=== PATIENT | female | born 1975 | race African-American/Black ===

== ENCOUNTER → 2018-08-01 | Outpatient (CLI) | payer OTHER | END | disposition home or self-care (01) | LOC: RADMN 13:10 | PROVIDERS: ATTEND Internal Medicine Cardiovascular Disease | DX: I20.8 Other forms of angina pectoris (principal); I49.8 Other specified cardiac arrhythmias; R22.2 Localized swelling, mass and lump, trunk; R07.9 Chest pain, unspecified; M79.89 Other specified soft tissue disorders | CPT/HCPCS: 71250 ==

== ENCOUNTER → 2019-08-17 | Outpatient (CLI) | payer OTHER ==
[~2019-08-17] MED LIST: IOVERSOL 350 MG/ML 100 ML VIAL ONE; SODIUM CHLORIDE 0.9% 100 ML ONE
== END | disposition home or self-care (01) ==
LOC: RADMN 08:30
PROVIDERS: ATTEND Internal Medicine Cardiovascular Disease
DX: J43.9 Emphysema, unspecified (principal); J40 Bronchitis, not specified as acute or chronic
CPT/HCPCS: 71260; J7050; Q9967

== ENCOUNTER 2021-11-03 20:18 | Emergency (ER) | payer OTHER ==
[~2021-11-03] VITALS: Ht 165.1 cm; Wt 52.3 kg
[2021-11-03 22:58] VITALS: BP 145/82
[2021-11-03 23:46] LABS: COVID AG,FIA SOURCE NASAL SWAB
== END 2021-11-03 22:59 | disposition home or self-care (01) ==
LOC: EMS 20:20
DX: U07.1 COVID-19 (principal); J40 Bronchitis, not specified as acute or chronic; F12.90 Cannabis use, unspecified, uncomplicated; J44.9 Chronic obstructive pulmonary disease, unspecified; I50.9 Heart failure, unspecified
CPT/HCPCS: 71045; 87426; 99284; C9803

== ENCOUNTER 2023-02-19 14:20 | Emergency (ER) | payer OTHER ==
[~2023-02-19] VITALS: Ht 165.1 cm; Wt 50.0 kg
[2023-02-19] MEDS ORDERED: METO50 PO (14:42)
[2023-02-19] MEDS ORDERED: ATOR10TA PO (14:42)
[2023-02-19] MEDS ORDERED: ALBU18HF12 IH (14:42)
[2023-02-19] MEDS ORDERED: BECL10.6 IH (14:42)
[2023-02-19 16:29] LABS: BASOPHILS % (AUTO) 0.8 % (0.0-2.0); EOSINOPHILS % (AUTO) 0.7 % (1.0-6.0); HEMATOCRIT 41.2 % (36-46); HEMOGLOBIN 13.5 g/dL (12.0-16.0); LYMPHOCYTES # (AUTO) 2.5 K/uL (1.0-4.8); MEAN CORPUSCULAR HEMOGLOBIN 30.4 pg (26.0-34.0); MEAN CORPUSCULAR HGB CONC 32.8 G/dL (31.0-37.0); MEAN CORPUSCULAR VOLUME 93 fL (80-100); MONOCYTES # (AUTO) 0.4 K/uL (0.1-1.0); MONOCYTES % (AUTO) 6.5 % (2.0-9.0); NEUTROPHILS # (AUTO) 3.5 K/uL (1.8-7.7); PLATELET COUNT (AUTO) 251 K/uL (150-450); RED BLOOD CELL COUNT(AUTO) 4.46 MIL/uL (4.00-5.20); RED CELL DISTRIBUTION WIDTH 13.5 % (11.5-14.5)
[2023-02-19 16:56] LABS: PROTHROMBIN TIME 10.3 SEC (9.4-11.6)
[2023-02-19 17:03] LABS: B-TYPE NATRIURETIC PEPTIDE 24 pg/mL (0-100)
[2023-02-19 17:09] LABS: ANION GAP 9 mmol/L (8-16); CALCIUM, TOTAL 9.2 mg/dL (8.8-10.5); CARBON DIOXIDE 26 mmol/L (22-29); CHLORIDE 107 mmol/L (98-107); GLOMERULAR FILTR. RATE CALC > 60 mL/min (>60); GLUCOSE,RANDOM 81 mg/dL (70-110); POTASSIUM 4.4 mmol/L (3.5-5.1); SODIUM SERUM 142 mmol/L (136-145); UREA NITROGEN, BLOOD 12 mg/dL (7-18)
[2023-02-19 17:26] LABS: ALANINE AMINOTRANSFERASE 24 U/L (12-78); ALBUMIN 3.8 g/dL (3.4-5.0); ALKALINE PHOSPHATASE 67 U/L (46-116); ASPARTATE AMINOTRANSFERASE 20 U/L (15-37); BILIRUBIN,TOTAL 0.6 mg/dL (0.1-1.0); TOTAL PROTEIN, SERUM 7.5 g/dL (6.4-8.2)
[2023-02-19 17:44] LABS: HCG,QUANTITATIVE < 1 mIU/mL (0-6)
[2023-02-19 18:20] LABS: APPEARANCE,URINE CLEAR (CLEAR); BILIRUBIN,URINE NEGATIVE (NEGATIVE); GLUCOSE, URINE (UA) NEGATIVE (NEGATIVE); KETONES,URINE NEGATIVE (NEGATIVE); LEUKOCYTE ESTERASE ,URINE NEGATIVE (NEGATIVE); NITRATE,URINE NEGATIVE (NEGATIVE); OCCULT BLOOD,URINE MODERATE (NEGATIVE); PROTEIN,URINE TRACE mg/dL (NEGATIVE); SPECIFIC GRAVITIY, URINE 1.026 (1.003-1.030); UROBILINOGEN,URINE <=1.0 mg/dL (<=1.0)
[2023-02-19 18:25] LABS: BACTERIA,URINE None Seen /HPF (None Seen); SQUAMOUS EPITHELIAL CELL,UR Few /LPF (None Seen); WBC,URINE None Seen /HPF (0-5)
[2023-02-19 19:47] VITALS: BP 102/62
== END 2023-02-19 20:23 | disposition home or self-care (01) ==
LOC: EMS 14:22
DX: N93.9 Abnormal uterine and vaginal bleeding, unspecified (principal); F41.9 Anxiety disorder, unspecified; I50.9 Heart failure, unspecified; J44.9 Chronic obstructive pulmonary disease, unspecified; F12.90 Cannabis use, unspecified, uncomplicated; Z98.890 Other specified postprocedural states
CPT/HCPCS: 80053; 81001; 83880; 84484; 84702; 85025; 85610; 85730; 93005; 99284

== ENCOUNTER 2024-05-23 13:18 | Emergency (ER) | payer OTHER ==
[~2024-05-23] VITALS: Ht 165.1 cm; Wt 50.9 kg
[~2024-05-23 13:18] MED LIST changes: +ALBU18HF12 IH; +ATOR10TA PO; +BECL10.6 IH; -IOVERSOL 350 MG/ML 100 ML VIAL ONE; +METO50 PO; -SODIUM CHLORIDE 0.9% 100 ML ONE
[2024-05-23 13:41] VITALS: TEMP 98.4
[2024-05-23] MEDS ORDERED: OMEP20TA20 PO (13:47)
[2024-05-23] MEDS ORDERED: GABA600T10 PO (13:47)
[2024-05-23] MEDS ORDERED: TRAZ-252 PO (13:47)
[2024-05-23] MEDS ORDERED: EZET10TA57 PO (13:47)
[2024-05-23] MEDS ORDERED: ATOR20TA65 PO (13:47)
[2024-05-23] MEDS ORDERED: ASPI-1444 PO (13:47)
[2024-05-23] MEDS ORDERED: LATA2.5D14 OU (13:47)
[2024-05-23] MEDS ORDERED: DEXA4 PO (14:03)
[2024-05-23] MEDS ORDERED: CELE200 PO (14:03)
[2024-05-23 14:04] VITALS: BP 125/74; PULSE 64; RESP 14
[2024-05-23] MEDS ORDERED: NALO25TA4 PO (14:07)
[2024-05-23] MEDS ORDERED: UMEC1DIS IH (14:07)
[2024-05-23] MEDS ORDERED: MIRT-93 PO (14:07)
[2024-05-23] MEDS ORDERED: CHOL200059 PO (14:07)
[2024-05-23] MEDS ORDERED: LIDO1ADH63 TD (14:07)
[2024-05-23] MEDS ORDERED: TRET20CR33 TP (14:07)
[2024-05-23] MEDS ORDERED: METO-408 PO (14:07)
[2024-05-23] MEDS: KETOROLAC TROMETHAMINE 60 MG/2 ML VIAL IM ONE (14:08)
[2024-05-23] MEDS: DEXAMETHASONE SOD PHOS 4 MG/ML 5 ML VIAL IM ONE (14:08)
[2024-05-24] MEDS ORDERED: ONDA-104 PO (07:08)
== END 2024-05-23 14:30 | disposition home or self-care (01) ==
LOC: EMS 13:42
DX: G56.01 Carpal tunnel syndrome, right upper limb (principal); E78.00 Pure hypercholesterolemia, unspecified; I50.9 Heart failure, unspecified; J44.9 Chronic obstructive pulmonary disease, unspecified; F12.90 Cannabis use, unspecified, uncomplicated
CPT/HCPCS: 99284; 96372; J1100; J1885

== ENCOUNTER 2024-05-24 01:32 | Emergency (ER) | payer OTHER ==
[~2024-05-24] VITALS: Ht 165.1 cm; Wt 50.9 kg
[~2024-05-24 01:32] MED LIST changes: +ASPI-1444 PO; -ATOR10TA PO; +ATOR20TA65 PO; -BECL10.6 IH; +CELE200 PO; +CHOL200059 PO; +DEXA4 PO; +EZET10TA57 PO; +GABA600T10 PO; +LATA2.5D14 OU; +LIDO1ADH63 TD; +METO-408 PO; -METO50 PO; +MIRT-93 PO; +NALO25TA4 PO; +OMEP20TA20 PO; +TRAZ-252 PO; +TRET20CR33 TP; +UMEC1DIS IH
[2024-05-24 01:34] VITALS: TEMP 98.1
[2024-05-24] MEDS: FAMOTIDINE 20 MG/2 ML VIAL IVP ONE (02:06)
[2024-05-24] MEDS: MAG HYDROX/ALUMINUM HYD/SIMETH ES 30 ML SUSPENSION UDCUP PO ONE (02:09)
[2024-05-24] MEDS: ONDANSETRON HCL 4 MG/2 ML VIAL IVP ONE ×2 (02:09→05:10)
[2024-05-24 02:12] LABS: BASOPHILS % (AUTO) 0.3 % (0.0-2.0); EOSINOPHILS % (AUTO) 0 % (1.0-6.0); HEMATOCRIT 40.8 % (36-46); HEMOGLOBIN 13.3 g/dL (12.0-16.0); LYMPHOCYTES # (AUTO) 1.4 K/uL (1.0-4.8); LYMPHOCYTES % (AUTO) 21.5 % (22.0-44.0); MEAN CORPUSCULAR HEMOGLOBIN 30.1 pg (26.0-34.0); MEAN CORPUSCULAR HGB CONC 32.5 G/dL (31.0-37.0); MEAN CORPUSCULAR VOLUME 93 fL (80-100); MONOCYTES # (AUTO) 0.2 K/uL (0.1-1.0); MONOCYTES % (AUTO) 3.5 % (2.0-9.0); NEUTROPHILS % (AUTO) 74.7 % (40.0-70.0); PLATELET COUNT (AUTO) 247 K/uL (150-450); RED BLOOD CELL COUNT(AUTO) 4.41 MIL/uL (4.00-5.20); RED CELL DISTRIBUTION WIDTH 13.9 % (11.5-14.5); WHITE BLOOD COUNT (AUTO) 6.7 K/uL (4.5-11.0)
[2024-05-24 02:22] LABS: ANION GAP 8 mmol/L (8-16); CALCIUM, TOTAL 9.5 mg/dL (8.8-10.5); CARBON DIOXIDE 27 mmol/L (22-29); CHLORIDE 102 mmol/L (98-107); CREATININE 0.88 mg/dL (0.60-1.30); GLOMERULAR FILTR. RATE CALC > 60 mL/min (>60); GLUCOSE,RANDOM 129 mg/dL (70-110); LIPASE 25 U/L (16-77); POTASSIUM 4.1 mmol/L (3.5-5.1); SODIUM SERUM 137 mmol/L (136-145); UREA NITROGEN, BLOOD 21 mg/dL (7-18)
[2024-05-24] MEDS: MORPHINE SULFATE 2 MG/ML SYRINGE IVP ONE (02:48)
[2024-05-24] MEDS: METOPROLOL SUCCINATE 25 MG ER TABLET PO ONE (05:20)
[2024-05-24] MEDS: CALCIUM CARBONATE 500 MG CHEWABLE TABLET CHEW ONE (05:20)
[2024-05-24] MEDS: METOCLOPRAMIDE HCL 5 MG/ML 2 ML VIAL IVP ONE (06:26)
[2024-05-24] MEDS: DiphenhydrAMINE HCL 50 MG/ML VIAL IVP ONE (06:26)
[2024-05-24 06:31] LABS: ALANINE AMINOTRANSFERASE 28 U/L (12-78); ALBUMIN 3.6 g/dL (3.4-5.0); ALKALINE PHOSPHATASE 80 U/L (46-116); ASPARTATE AMINOTRANSFERASE 27 U/L (15-37); BILIRUBIN,TOTAL 0.4 mg/dL (0.1-1.0); TOTAL PROTEIN, SERUM 7.4 g/dL (6.4-8.2)
[2024-05-24 06:40] LABS: APPEARANCE,URINE CLEAR (CLEAR); BILIRUBIN,URINE NEGATIVE (NEGATIVE); COLOR,URINE LIGHT YELLOW (YELLOW); GLUCOSE, URINE (UA) NEGATIVE (NEGATIVE); KETONES,URINE NEGATIVE (NEGATIVE); LEUKOCYTE ESTERASE ,URINE NEGATIVE (NEGATIVE); NITRATE,URINE NEGATIVE (NEGATIVE); OCCULT BLOOD,URINE NEGATIVE (NEGATIVE); PH,URINE 5.5 (5.0-8.0); PH,URINE DRUG SCREEN 5.5 (5.0-8.0); PROTEIN,URINE TRACE mg/dL (NEGATIVE); SPECIFIC GRAVITIY, URINE 1.043 (1.003-1.030); UROBILINOGEN,URINE <=1.0 mg/dL (<=1.0)
[2024-05-24 06:47] LABS: ALCOHOL, URINE DRUG SCREEN NEGATIVE (NEGATIVE); AMPHET/METH SCREEN,URINE NEGATIVE (NEGATIVE); BARBITURATE SCREEN, URINE NEGATIVE (NEGATIVE); BENZODIAZEPINES SCREEN,URINE NEGATIVE (NEGATIVE); CANNABINOID SCREEN,URINE POSITIVE (NEGATIVE); COCAINE SCREEN,URINE NEGATIVE (NEGATIVE); METHADONE SCREEN, URINE NEGATIVE (NEGATIVE); OPIATE SCREEN,URINE POSITIVE (NEGATIVE); PHENCYCLIDINE SCREEN,URINE NEGATIVE (NEGATIVE)
[2024-05-24] MEDS ORDERED: ONDA-104 PO (07:08)
[2024-05-24 07:28] LABS: BACTERIA,URINE None Seen /HPF (None Seen); RBC,URINE 0-2 /HPF (0-2); URIC ACID CRYSTALS,URINE Moderate /LPF (None Seen); WBC,URINE None Seen /HPF (0-5)
[2024-05-24 07:30] VITALS: BP 132/78; PULSE 66; RESP 16
== END 2024-05-24 07:51 | disposition home or self-care (01) ==
LOC: EMS 01:32
DX: R10.13 Epigastric pain (principal); R11.2 Nausea with vomiting, unspecified; J44.9 Chronic obstructive pulmonary disease, unspecified; F12.90 Cannabis use, unspecified, uncomplicated; Z79.899 Other long term (current) drug therapy
CPT/HCPCS: 99285; 74176; 96374; 96375; 80048; 80076; 83690; 84703; 85025; 36415; 96376; 80307; 81001; J1200; J3490; J2765; J2270; J2405

== ENCOUNTER 2025-07-22 15:03 | Emergency (ER) | payer OTHER ==
[~2025-07-22] VITALS: Ht 165.1 cm; Wt 51.0 kg
[~2025-07-22 15:03] MED LIST changes: +GABA-1404 PO; -GABA600T10 PO; -LATA2.5D14 OU; +LATA2.5D7 OU; +ONDA-104 PO
[2025-07-22] MEDS ORDERED: ATOR40TA71 PO (17:48)
[2025-07-22] MEDS ORDERED: OLAN10TA74 PO (17:48)
[2025-07-22] MEDS ORDERED: NITR0.4T50 SL (17:49)
[2025-07-22] MEDS ORDERED: ESTR42.510 VG (17:49)
[2025-07-22] MEDS ORDERED: FAMO20 PO (17:49)
[2025-07-22] MEDS ORDERED: GLYC1TAB27 PO (17:49)
[2025-07-22] MEDS ORDERED: TRAM50TA5 PO (17:49)
[2025-07-22] MEDS ORDERED: METH150T PO (17:49)
[2025-07-22] MEDS ORDERED: PROG100C24 PO (17:49)
[2025-07-22 17:54] LABS: PLATELET COUNT (AUTO) 236 K/uL (150-450); RED BLOOD CELL COUNT(AUTO) 4.43 MIL/uL (4.00-5.20); RED CELL DISTRIBUTION WIDTH 14.0 % (11.5-14.5); WHITE BLOOD COUNT (AUTO) 6.0 K/uL (4.5-11.0)
[2025-07-22 18:09] LABS: CALCIUM, TOTAL 8.7 mg/dL (8.8-10.5); CREATININE 0.68 mg/dL (0.60-1.30); GLOMERULAR FILTR. RATE CALC > 60 mL/min (>60); GLUCOSE,RANDOM 77 mg/dL (70-110); SODIUM SERUM 138 mmol/L (136-145); UREA NITROGEN, BLOOD 12 mg/dL (7-18)
[2025-07-22] MEDS: KETOROLAC TROMETHAMINE 30 MG/ML VIAL IVP ONE (18:14)
[2025-07-22 18:15] LABS: TROPONIN I-HIGH SENSITIVITY 4 ng/L (<51)
[2025-07-22] MEDS: ONDANSETRON HCL 4 MG/2 ML VIAL IVP ONE (18:15)
[2025-07-22] MEDS: METHOCARBAMOL 100 MG/ML 10 ML VIAL IVP ONE (18:16)
[2025-07-22 18:19] LABS: LACTIC ACID 0.4 mmol/L (0.4-2.0)
[2025-07-22] MEDS ORDERED: METH-659 PO (21:12)
[2025-07-22 21:45] VITALS: BP 119/71; PULSE 78; RESP 16; TEMP 98.3; O2SAT 100
== END 2025-07-22 22:11 | disposition home or self-care (01) ==
LOC: EMS 15:03
DX: G89.29 Other chronic pain (principal); M54.50 Low back pain, unspecified; E78.00 Pure hypercholesterolemia, unspecified; F12.90 Cannabis use, unspecified, uncomplicated; I50.9 Heart failure, unspecified; J44.9 Chronic obstructive pulmonary disease, unspecified; Z98.890 Other specified postprocedural states; Z79.82 Long term (current) use of aspirin; Z79.890 Hormone replacement therapy; Z79.899 Other long term (current) drug therapy
CPT/HCPCS: 99284; 96374; 96375; 80048; 83605; 83690; 84484; 85025; 36415; J1885; J2919; J2405; J2800